=== PATIENT | male | born 1960 | race Caucasian/White ===

== ENCOUNTER 2021-09-03 20:10 | Emergency (ER) | payer MEDICAID ==
[~2021-09-03] VITALS: Ht 188 cm; Wt 97.5 kg
--- NOTE | 2021-09-03 20:10 | NUR ---
Patient BIB [facility] c/o ETOH. Patient selectively answers question. Unable to get complete Hx.
[2021-09-03] MEDS ORDERED: TRAZ-182 PO (20:23)
[2021-09-03] MEDS ORDERED: DULO20CA PO (20:23)
[2021-09-03] MEDS ORDERED: CHLORDIAZEPOXIDE HCL 25 MG CAPSULE PO ONE (20:30)
[2021-09-03] MEDS ORDERED: LORAZEPAM 2 MG/1 ML VIAL IV ONE (20:30)
[2021-09-03] MEDS ORDERED: THIAMINE HCL 100 MG TABLET PO ONE (20:30)
[2021-09-03] MEDS ORDERED: IV NORMAL SALINE 1000 ML BAG IV ONE (20:30)
[2021-09-03] MEDS ORDERED: CHLORDIAZEPOXIDE HCL 25 MG CAPSULE ONE (20:53)
[2021-09-03] MEDS ORDERED: THIAMINE HCL 100 MG TABLET ONE (20:53)
[2021-09-03] MEDS ORDERED: LORAZEPAM 2 MG/1 ML VIAL ONE (20:54)
[2021-09-03 21:05] LABS: HEMATOCRIT 39.3 % (36.7-47.1); MEAN CORPUSCULAR HEMOGLOBIN 33.5 uug (23.8-33.4); MEAN CORPUSCULAR VOLUME 100.3 fL (73.0-96.2); PLATELET COUNT (AUTO) 187 K/uL (152-348)
[2021-09-03 21:13] LABS: POTASSIUM 3.7 mmol/L (3.5-5.1)
[2021-09-03 21:20] LABS: BILIRUBIN,DIRECT 0.3 mg/dL (0.0-0.2); BILIRUBIN,TOTAL 0.8 mg/dL (0.2-1.0); TOTAL PROTEIN, SERUM 7.2 g/dL (6.4-8.2)
[2021-09-03] MEDS ORDERED: MAGNESIUM SULFATE/D5W 300 ML ONE (21:31)
[2021-09-03] MEDS: MAGNESIUM SULFATE/D5W 100 ML IV SCH ×4 (21:32→22:12)
[2021-09-03] MEDS ORDERED: IV NS 1000 ML 1,000 ML IV ONE (21:45)
[2021-09-03] MEDS ORDERED: CYANOCOBALAMIN 1000 MCG/ML VIAL IM ONE (22:15)
[2021-09-03] MEDS ORDERED: CYANOCOBALAMIN 1000 MCG/ML VIAL ONE (22:21)
--- NOTE | 2021-09-04 01:30 | NUR ---
Patient is awake. a/ox4
[2021-09-04] MEDS ORDERED: CHLO25CA22 PO (01:34)
[2021-09-04] MEDS ORDERED: PROC-11 PO (01:34)
[2021-09-04] MEDS ORDERED: PROCHLORPERAZINE EDISYLATE 10 MG/2 ML VIAL ONE (02:41)
[2021-09-04] MEDS ORDERED: PROCHLORPERAZINE EDISYLATE 10 MG/2 ML VIAL IM ONE (02:45)
--- NOTE | 2021-09-04 02:45 | NUR ---
Called [employer] for transportation
--- NOTE | 2021-09-04 03:40 | NUR ---
Patient discharged to home in stable condition. Written and verbal after care instructions given. Patient verbalizes understanding of instructions. Stressed follow up or return to ER for worsening s/s. Patient is A/Ox4, no SOB, no distress noted
[2021-09-04 03:47] VITALS: BP 125/71
== END 2021-09-04 03:40 | disposition home or self-care (01) ==
LOC: ER 20:14
DX: F10.20 Alcohol dependence, uncomplicated (principal); Y90.6 Blood alcohol level of 120-199 mg/100 ml; E83.42 Hypomagnesemia; R11.0 Nausea; D53.9 Nutritional anemia, unspecified; Z59.02 Unsheltered homelessness; F32.A Depression, unspecified
CPT/HCPCS: 36415; 80048; 80076; 80320; 82607; 83735; 85025; 96361; 96365; 96372 ×2; 96375; 99285; J0780; J2060; J3420; J3475; J7040; G0480